=== PATIENT | male | born 1935 | race Caucasian/White ===

== ENCOUNTER → 2017-05-10 | Outpatient (CLI) | payer MEDICARE, OTHER ==
[2014-10-26 10:43] VITALS: BMI 21.0
[~2017-05-10] MED LIST: ACYC5CRE5 TOP; ALFU10TA9 PO; AML5 PO; AMLO-1 PO; AMLO-104 PO; AMLO-96 PO; AMLO-99 PO; AMLO2.5T74 PO; ASPI-1441 PO; ATR10 PO; BACL-1 PO; CAL25 PO; CALC-797 PO; DEN60I SQ; DEN60I SUBQ; DOC100 PO; DOCU-416 PO; DUT0.5 PO; DUTA0.5C14 PO; FAMC500T19 PO; FLU180SY9 IM; GLUC-125 PO; LEV500 PO; LEV88 PO; LEVO88TA45 PO; LISI-553 PO; LOR5 PO; MET50 PO; METH4TAB66 PO; METO-221 PO; METO-253 PO; OMEP-218 PO; OXYC-865 PO; OXYC-868 PO; PER PO; PHEN200T32 PO; PNEU0.5D3 IM; POLY17PO25 PO; RANI-324 PO; TAM4 PO; TOLT4CAP13 PO; [UNRECOGNIZED DRUG - CODE] PO
[2017-05-10 11:43] LABS: PLATELET COUNT, AUTOMATED 197 K/uL (150-450)
== END ==
LOC: LAB 11:22
PROVIDERS: ATTEND Internal Medicine
DX: I12.9 Hypertensive chronic kidney disease with stage 1 through stage 4 chronic kidney disease, or unspecified chronic kidney disease (principal); N18.9 Chronic kidney disease, unspecified; C64.9 Malignant neoplasm of unspecified kidney, except renal pelvis; E03.9 Hypothyroidism, unspecified; K21.9 Gastro-esophageal reflux disease without esophagitis; N25.81 Secondary hyperparathyroidism of renal origin; E83.52 Hypercalcemia
CPT/HCPCS: 36415; 81001; 82040; 82247; 82306; 82310; 82374; 82435; 82565; 82947; 83540; 83550; 83970; 84075; 84100; 84132; 84155; 84295; 84450; 84460; 84520; 84550; 85025

== ENCOUNTER → 2017-06-04 | Outpatient (CLI) | payer MEDICARE, OTHER ==
[2014-10-26 10:43] VITALS: BMI 21.0
[~2017-06-04] MED LIST changes: +OMEP-137 PO
[2017-06-04 13:47] LABS: PLATELET COUNT, AUTOMATED 198 K/uL (150-450)
== END ==
LOC: LAB 13:22
PROVIDERS: ATTEND Internal Medicine Nephrology
DX: I12.9 Hypertensive chronic kidney disease with stage 1 through stage 4 chronic kidney disease, or unspecified chronic kidney disease (principal); N18.3 Chronic kidney disease, stage 3 (moderate); D63.1 Anemia in chronic kidney disease; N25.81 Secondary hyperparathyroidism of renal origin
CPT/HCPCS: 36415; 82040; 82247; 82310; 82374; 82435; 82565; 82570; 82947; 83540; 83550; 83970; 84075; 84100; 84132; 84155; 84156; 84295; 84450; 84460; 84520; 85025

== ENCOUNTER → 2017-06-11 | Outpatient (CLI) | payer MEDICARE, OTHER ==
[2014-10-26 10:43] VITALS: BMI 21.0
== END ==
LOC: LAB 12:58
PROVIDERS: ATTEND Internal Medicine Nephrology
DX: E83.52 Hypercalcemia (principal)
CPT/HCPCS: 36415; 82306; 82330; 82340; 83516; 86334

== ENCOUNTER → 2017-06-16 | Outpatient (CLI) | payer MEDICARE, OTHER ==
[2014-10-26 10:43] VITALS: BMI 21.0
--- NOTE | 2017-06-16 14:01 | RADIOLOGY IMAGING REPORT ---
[place]AC[place] [facility] [place] NAME: Marcelo Platt : 1935 MR: [id number] V: [id number] EXAM DATE: ORDERING PHYSICIAN: YAYA MAO TECHNOLOGIST: Location: [facility] - [place], [place] Patient: Marcelo Platt : 1935 Visit/Account:[id number] Date of Sevice: 06/16/2017 ABDOMEN/PELVIS W/O CONTRAST HISTORY: Left-sided back pain, kidney disease TECHNIQUE: Axial images acquired through the abdomen/pelvis. Coronal and sagittal reformatting also performed. No IV contrast administered. Dose Lowering Technique One of the following dose optimization techniques was utilized in the performance of this exam: Autom ated exposure control; adjustment of the mA and/or kV according to the patient's size; or use of an i terative reconstruction technique. Specific details can be referenced in the facility's radiology C T exam operational policy. COMPARISON: June 22, 2016 FINDINGS: Visualized lung bases: Negative. Hepatobiliary: Cholelithiasis although no evidence of biliary ductal dilatation Spleen: Accessory splenule Adrenals: Negative. 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 No evidence of local tumor recurrence. 6 mm calcification lower pole the left kidney appears similar to the prior study. No evidence of hydronephrosis or hydroureter Genitalia: Prostate gland is moderately enlarged impinging upon the floor the bladder GI: There is a small hiatal hernia Vessels/spaces/nodes: There are extensive calcifications throughout the abdominal aorta and branch v essels Bones/soft tissues: Extensive spondylotic changes of the lumbar spine again noted. Extensive degene rative changes of the right hip joint also appear similar other than increase in the cystic changes p osterior aspect of the right acetabulum Additional findings: None pertinent. 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 6 mm calcination lower pole the left kidney appears similar to the prior study with no evidence of hy dronephrosis Prostate gland is moderately enlarged impinging upon the floor the bladder Small hiatal hernia Extensive gastric calcifications throughout the abdomen and pelvis Severe spondylotic change lumbar spine again noted Extensive degenerative change the right hip joint appears similar to the prior study other than incre ase in the cystic changes posterior aspect right acetabulum Report Dictated By: Patricia Scott MD at 06/16/2017 1:47 PM Report E-Signed By: Patricia Scott MD at 06/16/2017 1:56 PM WSN:[email or web address]
== END ==
LOC: CT 06-15 02:28
PROVIDERS: ATTEND Internal Medicine Nephrology
DX: K80.80 Other cholelithiasis without obstruction (principal); K86.9 Disease of pancreas, unspecified; Z90.5 Acquired absence of kidney; N40.0 Benign prostatic hyperplasia without lower urinary tract symptoms; I70.0 Atherosclerosis of aorta; K44.9 Diaphragmatic hernia without obstruction or gangrene; R19.8 Other specified symptoms and signs involving the digestive system and abdomen
CPT/HCPCS: 74176

== ENCOUNTER → 2017-06-23 | Outpatient (CLI) | payer MEDICARE, OTHER ==
[2014-10-26 10:43] VITALS: BMI 21.0
== END ==
LOC: LAB 11:52
PROVIDERS: ATTEND Urology
DX: Z12.5 Encounter for screening for malignant neoplasm of prostate (principal); N40.1 Benign prostatic hyperplasia with lower urinary tract symptoms
CPT/HCPCS: 36415; G0103; 84153

== ENCOUNTER → 2017-06-24 | Outpatient (CLI) | payer MEDICARE, OTHER ==
[2014-10-26 10:43] VITALS: BMI 21.0
--- NOTE | 2017-06-24 14:28 | RADIOLOGY IMAGING REPORT ---
FACILITY: [facility] - [place] PATIENT NAME: Marcelo Platt : 1935 MR: [id number] V: [id number] EXAM DATE: ORDERING PHYSICIAN: ROMINA AGUILERA TECHNOLOGIST: Location: [facility] Patient: Marcelo Platt : 1935 Visit/Account:[id number] Date of Sevice: 06/24/2017 Exam type: LUMBAR SPINE 2 OR 3 VIEW History: lumbar spine pain Comparison: June 28, 2013. Findings: There are five nonrib-bearing lumbar-type vertebral bodies present. There is moderate to severe disc space narrowing at L2-3 which has increased when compared the prior study. There are associated deg enerative endplate changes. There is a persistent 7 mm retrolisthesis of L2 with respect L3. There is moderate to severe disc space narrowing at L3-4 with associated degenerative endplate changes whic h is also increased when compared the prior study. There is severe disc space narrowing at L4-5 with degenerative endplate changes slightly increased when compared the prior study. There is no evidenc e of acute fractures. Incidentally noted are vascular calcifications in the abdominal aorta and bran ch vessels. There are surgical clips right upper quadrant of abdomen. IMPRESSION: 1. Extensive multilevel spondylotic changes lumbar spine have increased when compared to the prior s tudy of June 2013. Report Dictated By: Patricia Scott MD at 06/24/2017 2:22 PM Report E-Signed By: Patricia Scott MD at 06/24/2017 2:25 PM WSN:[email or web address]
== END ==
LOC: RAD 13:11
PROVIDERS: ATTEND Internal Medicine
DX: M47.896 Other spondylosis, lumbar region (principal)
CPT/HCPCS: 72100

== ENCOUNTER → 2017-08-27 | Outpatient (CLI) | payer MEDICARE, OTHER ==
[2014-10-26 10:43] VITALS: BMI 21.0
[~2017-08-27] MED LIST changes: -RANI-324 PO; +RANI-366 PO
[2017-08-27 11:53] LABS: PLATELET COUNT, AUTOMATED 189 K/uL (150-450)
== END ==
LOC: LAB 11:24
PROVIDERS: ATTEND Internal Medicine Nephrology
DX: N18.3 Chronic kidney disease, stage 3 (moderate) (principal); Z90.5 Acquired absence of kidney; D63.1 Anemia in chronic kidney disease; C64.1 Malignant neoplasm of right kidney, except renal pelvis; E21.3 Hyperparathyroidism, unspecified; E83.52 Hypercalcemia
CPT/HCPCS: 36415; 82040; 82310; 82330; 82374; 82435; 82565; 82570; 82947; 83970; 84100; 84132; 84156; 84295; 84520; 85025

== ENCOUNTER → 2017-11-23 | Outpatient (CLI) | payer MEDICARE, OTHER ==
[2014-10-26 10:43] VITALS: BMI 21.0
[2017-11-23 10:43] LABS: PLATELET COUNT, AUTOMATED 199 K/uL (150-450)
== END ==
LOC: LAB 09:55
PROVIDERS: ATTEND Internal Medicine Nephrology
DX: I12.9 Hypertensive chronic kidney disease with stage 1 through stage 4 chronic kidney disease, or unspecified chronic kidney disease (principal); E21.3 Hyperparathyroidism, unspecified; Z90.5 Acquired absence of kidney; N18.4 Chronic kidney disease, stage 4 (severe); E83.52 Hypercalcemia
CPT/HCPCS: 36415; 82040; 82310; 82330; 82374; 82435; 82565; 82570; 82947; 84100; 84132; 84156; 84295; 84520; 85025

== ENCOUNTER → 2017-11-24 | Outpatient (REF) | payer MEDICARE, OTHER ==
[2014-10-26 10:43] VITALS: BMI 21.0
== END ==
LOC: LAB 05:54
PROVIDERS: ATTEND Internal Medicine Nephrology
DX: E83.52 Hypercalcemia (principal); N18.4 Chronic kidney disease, stage 4 (severe); M81.0 Age-related osteoporosis without current pathological fracture; Z90.5 Acquired absence of kidney; I12.9 Hypertensive chronic kidney disease with stage 1 through stage 4 chronic kidney disease, or unspecified chronic kidney disease

== ENCOUNTER → 2017-12-24 | Outpatient (CLI) | payer MEDICARE, OTHER ==
[2014-10-26 10:43] VITALS: BMI 21.0
--- NOTE | 2017-12-24 10:47 | RADIOLOGY IMAGING REPORT ---
FACILITY: [facility] [place] PATIENT NAME: Marcelo Platt : 1935 MR: [id number] V: [id number] EXAM DATE: ORDERING PHYSICIAN: ROMINA AGUILERA TECHNOLOGIST: Location: Patient: Marcelo Platt : 1935 Visit/Account:[id number] Date of Sevice: 12/24/2017 Abdominal ultrasound Indication: Pain after eating, history of right nephrectomy Comparison: CT June 16, 2017 Findings: Liver is normal in size, contour, and echotexture and measures 13.1 cm in length. There is normal hep atopedal portal venous flow. The spleen is normal in size, contour, and echotexture and measures 11.8 cm in length. Gallbladder wall thickness is 2.6 mm with stable small mobile stones within the gallbladder lumen. Ne gative sonographic Rios's sign reported by the technologist. Common duct measures 2.6 mm in maximum diameter with no evidence of shadowing stone. The head and proximal body of the pancreas is unremarkable. The distal body and tail is obscured by o verlying bowel gas. Abdominal aorta and IVC are patent and unremarkable. The left kidney are normal in size, contour, and echotexture with the left kidney measuring 9.8 cm. T here two simple exophytic cysts present, one measures 9 mm within the upper pole and the other measur es 9 mm within the lower pole. The right kidney is surgically absent. IMPRESSION: 1. Cholelithiasis without sonographic evidence of acute cholecystitis. 2. Right nephrectomy changes Report Dictated By: Sina Jerome at 12/24/2017 10:37 AM Report E-Signed By: Sina Jerome at 12/24/2017 10:43 AM WSN:[email or web address]
== END ==
LOC: US 04:58
PROVIDERS: ATTEND Internal Medicine
DX: K80.00 Calculus of gallbladder with acute cholecystitis without obstruction (principal); N28.1 Cyst of kidney, acquired; Z90.5 Acquired absence of kidney
CPT/HCPCS: 76700

== ENCOUNTER → 2018-02-24 | Outpatient (CLI) | payer MEDICARE, OTHER ==
[2014-10-26 10:43] VITALS: BMI 21.0
[~2018-02-24] MED LIST changes: +AMLO-111 PO; +AMLO-113 PO; -AMLO-96 PO; -AMLO-99 PO; -AMLO2.5T74 PO; +AMLO2.5T76 PO; +LEVO-3 PO
== END ==
LOC: LAB 09:56
PROVIDERS: ATTEND Internal Medicine
DX: E21.3 Hyperparathyroidism, unspecified (principal)
CPT/HCPCS: 36415; 84443

== ENCOUNTER → 2018-03-23 | Outpatient (CLI) | payer MEDICARE, OTHER ==
[2014-10-26 10:43] VITALS: BMI 21.0
[~2018-03-23] MED LIST changes: +FLUT16SP19 NS
[2018-03-23 11:09] LABS: PLATELET COUNT, AUTOMATED 171 K/uL (150-450)
== END ==
LOC: LAB 10:28
PROVIDERS: ATTEND Internal Medicine Nephrology
DX: N18.4 Chronic kidney disease, stage 4 (severe) (principal); I12.9 Hypertensive chronic kidney disease with stage 1 through stage 4 chronic kidney disease, or unspecified chronic kidney disease; E83.52 Hypercalcemia; D63.1 Anemia in chronic kidney disease
CPT/HCPCS: 36415; 82040; 82247; 82248; 82310; 82330; 82374; 82435; 82565; 82570; 82947; 84075; 84100; 84132; 84155; 84156; 84295; 84450; 84460; 84520; 85025

== ENCOUNTER → 2018-04-07 | Outpatient (CLI) | payer MEDICARE, OTHER ==
[2014-10-26 10:43] VITALS: BMI 21.0
--- NOTE | 2018-04-08 08:59 | RADIOLOGY IMAGING REPORT ---
FACILITY: [facility] PATIENT NAME: Marcelo Platt : 1935 MR: [id number] V: [id number] EXAM DATE: ORDERING PHYSICIAN: YAYA MAO TECHNOLOGIST: Location: [facility] Patient: Marcelo Platt : 1935 Visit/Account:[id number] Date of Sevice: 04/07/2018 DEXA Scan Clinical history: Osteoporosis, hyperparathyroidism. Comparison: DEXA scan from 03/05/2014. LUMBAR SPINE: The bone mineral density (BMD) measured from L1-L4 correlates with a Z-score of 3.4 and a T-score of 2.1 which is Normal as defined by the World Health Organization. The corresponding risk of fracture in the lumbar spine is Not increased compared with a young adult reference population. This value frank s decrease by 2.8 % since the prior study. More than 5% change is considered significant. HIP: Bone mineral density (BMD) measured in the LEFT total hip region correlates with a Z-score -1.9 and a T-score of -3.5 which is osteoporosis as defined by the World Health Organization. The correspondin g risk of fracture in the hip is 12 times increased compared to a young adult reference population. T his value has decrease by 20.2 % since the prior study. More than 5% change is considered significan t. T score left femoral neck -3.6 Bone mineral density (BMD) measured in the Femoral Neck region measures 0.604 g/cm?. IMPRESSION: 1. Lumbar spine: Normal. There has been 2.8% decrease in the bone mineral density since the previou s exam. 2. Left Total Hip: Osteoporosis. There has been 20.2 in the bone mineral density since the previous exam. 3. Femoral Neck: Bone Mineral Density is 0.604 g/cm? The next DEXA scan of this patient should include the following sites: L1-L4 and the left hip. FRAX? WHO Fracture Risk Assessment Tool link: <http://www.shef.ac.uk/FRAX/tool.jsp?locationValue=9> PLEASE NOTE: 1) The World Health Organization defines low BMD as follows: T-score Normal > -1 Osteopenia < -1 and > -2.5 Osteoporosis < -2.5 without fractures Established osteoporosis < -2.5 with fractures 2) In general, you may wish to consider: Diagnosis Treatment Follow-up DEXA Normal BMD Prevention 2-3 years Osteopenia Prevention/therapy 1-2 years Osteoporosis Therapy Yearly 3) Fracture risk estimated from the T-score is more accurate for vertebral fractures (often spontane ous) than for hip fractures. Report Dictated By: Particia Scott MD at 04/07/2018 1:13 PM Report E-Signed By: Patricia Scott MD at 04/08/2018 8:54 AM WSN:[email or web address]
== END ==
LOC: RAD 01:20
PROVIDERS: ATTEND Internal Medicine Nephrology
DX: M81.0 Age-related osteoporosis without current pathological fracture (principal); N25.81 Secondary hyperparathyroidism of renal origin
CPT/HCPCS: 77080

== ENCOUNTER → 2018-05-24 | Outpatient (CLI) | payer MEDICARE, OTHER ==
[2014-10-26 10:43] VITALS: BMI 21.0
[~2018-05-24] MED LIST changes: -AMLO-111 PO; -AMLO-113 PO; +AMLO-125 PO; +AMLO-127 PO; -AMLO2.5T76 PO; +AMLO2.5T78 PO; +LEV112 PO; +METO-257 PO
[2018-05-24 07:52] LABS: PLATELET COUNT, AUTOMATED 187 K/uL (150-450)
== END ==
LOC: LAB 07:24
PROVIDERS: ATTEND Internal Medicine
DX: E21.3 Hyperparathyroidism, unspecified (principal); I12.9 Hypertensive chronic kidney disease with stage 1 through stage 4 chronic kidney disease, or unspecified chronic kidney disease; N18.9 Chronic kidney disease, unspecified; C34.90 Malignant neoplasm of unspecified part of unspecified bronchus or lung; E03.9 Hypothyroidism, unspecified
CPT/HCPCS: 36415; 81001; 82040; 82247; 82306; 82310; 82374; 82435; 82465; 82565; 82746; 82947; 83718; 83970; 84075; 84132; 84153; 84155; 84295; 84443; 84450; 84460; 84478; 84520; 85025

== ENCOUNTER → 2018-06-28 | Outpatient (CLI) | payer MEDICARE, OTHER ==
[2014-10-26 10:43] VITALS: BMI 21.0
[~2018-06-28] MED LIST changes: +FOLI-68 PO
== END ==
LOC: LAB 10:15
PROVIDERS: ATTEND Urology
DX: Z12.5 Encounter for screening for malignant neoplasm of prostate (principal); N40.1 Benign prostatic hyperplasia with lower urinary tract symptoms
CPT/HCPCS: 36415; G0103; 84153

== ENCOUNTER → 2018-06-30 | Outpatient (CLI) | payer MEDICARE, OTHER ==
[2014-10-26 10:43] VITALS: BMI 21.0
== END ==
LOC: LAB 10:25
PROVIDERS: ATTEND Nurse Practitioner
DX: Z02.9 Encounter for administrative examinations, unspecified (principal)

== ENCOUNTER → 2018-06-30 | Outpatient (CLI) | payer MEDICARE, OTHER ==
[2014-10-26 10:43] VITALS: BMI 21.0
== END ==
LOC: LAB 10:07
PROVIDERS: ATTEND Surgery
DX: L82.1 Other seborrheic keratosis (principal)
CPT/HCPCS: 88305

== ENCOUNTER → 2018-12-01 | Outpatient (CLI) | payer MEDICARE, OTHER ==
[2014-10-26 10:43] VITALS: BMI 21.0
[~2018-12-01] MED LIST changes: -RANI-366 PO; +RANI-54 PO
[2018-12-01 11:22] LABS: PLATELET COUNT, AUTOMATED 185 K/uL (150-450)
== END ==
LOC: LAB 10:27
PROVIDERS: ATTEND Internal Medicine Nephrology
DX: N25.81 Secondary hyperparathyroidism of renal origin (principal); N18.4 Chronic kidney disease, stage 4 (severe); R80.9 Proteinuria, unspecified; I12.9 Hypertensive chronic kidney disease with stage 1 through stage 4 chronic kidney disease, or unspecified chronic kidney disease
CPT/HCPCS: 36415; 82040; 82310; 82374; 82435; 82565; 82570; 82947; 83970; 84100; 84132; 84156; 84295; 84520; 85025